=== PATIENT | female | born 1990 | race Caucasian/White ===

== ENCOUNTER → 2023-06-01 14:44 | Outpatient (REF) | payer BC, SELFPAY | LOC: PNTC 14:44 | PROVIDERS: ATTENDING PHYSICIAN Obstetrics & Gynecology | DX: Z36.84 Encounter for antenatal screening for fetal lung maturity (principal); Z36.0 Encounter for antenatal screening for chromosomal anomalies | CPT/HCPCS: 76801; 76813 ==

== ENCOUNTER → 2023-08-01 13:42 | Outpatient (REF) | payer BC, SELFPAY | LOC: PNTC 13:42 | PROVIDERS: ATTENDING PHYSICIAN Obstetrics & Gynecology | DX: Z34.82 Encounter for supervision of other normal pregnancy, second trimester (principal) | CPT/HCPCS: 76811 ==

== ENCOUNTER 2023-12-14 01:47 | Inpatient (IN) | payer BC, SELFPAY ==
[2023-12-14 02:18] VITALS: BP 123/84; BMI 30.6
[2023-12-14 03:02] LABS: % Basophils 0.4 % (0-2); % Eosinophils 1.5 % (0-6); % Immature Granulocytes 0.8 % (0-0.5); % Lymphocytes 17.2 % (20.5-51.1); % Monocytes 9.1 % (1.7-9.3); Absolute Basophils 0.1 10^3/uL (0-0.2); Absolute Eosinophils 0.2 10^3/uL (0-0.7); Absolute Immature Granulocytes 0.1 10^3/uL (0-0.05); Absolute Lymphocytes 2.5 10^3/uL (1.2-3.4); Absolute Monocytes 1.3 10^3/uL (0.1-0.6); Absolute Neutrophils 10.3 10^3/uL (1.4-6.5); Hematocrit 43.3 % (37.0-47.0); Hemoglobin 15.2 g/dL (12.0-16.0); Mean Corp Hgb Conc. 35.1 g/dL (33.0-37.0); Mean Corpuscular Volume 88.2 fL (81.0-99.0); Mean Platelet Volume 12.5 fL (7.4-10.4); Nucleated Red Blood Cells % 0 %; Platelet Count 184 10^3/uL (130-400); Red Blood Cell Count 4.91 10^6/uL (4.20-5.40); Red Cell Dist. Width 12.7 % (11.5-14.5); White Blood Cell Count 14.4 10^3/uL (4.8-10.8)
[2023-12-14] MEDS: SUBLIMAZE 100 MCG EPIDURAL (03:09)
[2023-12-14] MEDS: FENTANYL/BUPIVACAINE 100 EPIDURAL (03:09)
[2023-12-14] MEDS: PITOCIN 30 UNITS/NSS 500 ML IV (06:59)
[2023-12-14] MEDS: PRENATAL PLUS PO (08:55)
[2023-12-14] MEDS: MOTRIN 600 MG PO ×3 (08:55→21:54)
[2023-12-14] MEDS: PEPCID PO (08:55)
[2023-12-14] MEDS: SENOKOT-S 1 TABLET PO (19:50)
[2023-12-14] MEDS: PEPCID 40 MG PO (19:50)
[2023-12-15] MEDS: MOTRIN 600 MG PO ×4 (04:35→23:55)
[2023-12-15 04:51] LABS: Hematocrit 33.3 % (37.0-47.0); Hemoglobin 11.9 g/dL (12.0-16.0)
[2023-12-15] MEDS: PEPCID 40 MG PO ×2 (08:36→20:07)
[2023-12-15] MEDS: PRENATAL PLUS 1 TABLET PO (08:36)
[2023-12-15] MEDS: TYLENOL 650 MG PO ×3 (11:23→23:55)
[2023-12-16] MEDS: TYLENOL 650 MG PO (06:04)
[2023-12-16] MEDS: MOTRIN 600 MG PO (06:04)
[2023-12-16] MEDS: PEPCID 40 MG PO (09:04)
[2023-12-16] MEDS: SENOKOT-S 1 TABLET PO (09:04)
[2023-12-16] MEDS: PRENATAL PLUS 1 TABLET PO (09:04)
[2023-12-16 11:33] LABS: Syphilis/T. pallidum Ab Reflex Negative (Negative)
== END 2023-12-16 12:46 | disposition home or self-care (01) | DRG 807 ==
LOC: LDRP 01:47
PROVIDERS: ADMITTING PHYSICIAN Obstetrics & Gynecology; FAMILY PHYSICIAN Emergency Medicine
PROC: 0KQM0ZZ Repair Perineum Muscle, Open Approach (ICD-10-PCS; 2023-12-14)
PROC: 4A1HXCZ Monitoring of Products of Conception, Cardiac Rate, External Approach (ICD-10-PCS; 2023-12-14)
PROC: 10E0XZZ Delivery of Products of Conception, External Approach (ICD-10-PCS; 2023-12-14)
DX: O48.0 Post-term pregnancy (principal); Z37.0 Single live birth; O70.1 Second degree perineal laceration during delivery; Z3A.40 40 weeks gestation of pregnancy
CPT/HCPCS: 36415; 85014; 85018; 85025; 86780; 86850; 86900; 86901